=== PATIENT | female | born 1995 | race Caucasian/White ===

== ENCOUNTER 2018-09-29 14:48 | Emergency (ER) | payer MEDICAID, OTHER ==
[~2018-09-29] VITALS: Ht 167.6 cm; Wt 74.4 kg
[2018-09-29 15:40] LABS: CLARITY,URINE CLEAR; COLOR,URINE YELLOW; GLUCOSE, URINE (UA) NEGATIVE (NEGATIVE); PROTEIN,URINE NEGATIVE (NEGATIVE)
[2018-09-29 15:41] LABS: BILIRUBIN,URINE NEGATIVE (NEGATIVE); KETONES,URINE 2+ (NEGATIVE); LEUKOCYTE ESTERASE ,URINE NEGATIVE (NEGATIVE); NITRITE,URINE NEGATIVE (NEGATIVE); UROBILINOGEN,URINE 0.2 MG/DL (NORMAL)
--- NOTE | 2018-09-29 15:52 | ED Abdominal Pain ---
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 PATIENT STATES SHE HAS BEEN LIFTING A LOT AT WORK AND THIS PAIN STARTED OCCURING ABOUT 1 HOUR AGO. Sepsis Screen: No Definite Risk Source of Information: Patient, RN Notes Reviewed Exam Limitations: No Limitations History of Present Illness Date Seen by Provider: September 29, 2018 Past Skfvhqc-Bcknup-Ippsbr Hx Patient Social History Alcohol Use: Denies Use Recreational Drug Use: No Smoking Status: Never a Smoker 2nd Hand Smoke Exposure: No Recent Foreign Travel: No Contact w/Someone Who Travel: No Recent Infectious Disease Expo: No Recent Hopitalizations: No Physical Abuse: No Sexual Abuse: No Mistreated: No Fear: No Seasonal Allergies Seasonal Allergies: No Past Medical History Surgeries: Yes (RIGHT FOOT DEBEIDMENT) Gallbladder Respiratory: No Cardiac: No Neurological: No Genitourinary: No Gastrointestinal: No Musculoskeletal: No Endocrine: No HEENT: No Cancer: No Psychosocial: No Blood Disorders: No Physical Exam Vital Signs Vital Signs - First Documented 09/29/18 14:54 Temp 97.0 Pulse 102 Resp 20 B/P (MAP) 135/70 (91) Pulse Ox 100 O2 Delivery Room Air Capillary Refill : Less Than 3 Seconds Height/Weight/BMI Height: 5'6.00" Weight: 164lbs. oz. 74.784710bm; BMI Method:Stated Progress/Results/Core Measures Results/Orders Lab Results Laboratory Tests Test 09/29/18 15:31 Range/Units Urine Color YELLOW Urine Clarity CLEAR Urine pH 6.0 5-9 Urine Specific Marissa >1.030 1.016-1.022 Urine Protein NEGATIVE NEGATIVE Urine Glucose (UA) NEGATIVE NEGATIVE Urine Ketones 2+ H NEGATIVE Urine Nitrite NEGATIVE NEGATIVE Urine Bilirubin NEGATIVE NEGATIVE Urine Urobilinogen 0.2 NORMAL MG/DL Urine Leukocyte Esterase NEGATIVE NEGATIVE Urine RBC (Auto) NEGATIVE NEGATIVE Urine RBC NONE /HPF Urine WBC NONE /HPF Urine Squamous Epithelial Cells 2-5 /HPF Urine Crystals NONE /LPF Urine Bacteria NONE /HPF Urine Casts NONE /LPF Urine Mucus NEGATIVE /LPF Urine Culture Indicated NO My Orders Orders - PIO MONTES DO Ua Culture If Indicated (09/29/18 15:08) Vital Signs/I&O 09/29/18 14:54 Temp 97.0 Pulse 102 Resp 20 B/P (MAP) 135/70 (91) Pulse Ox 100 O2 Delivery Room Air Blood Pressure Mean: 91 Departure Impression Primary Impression: Abdominal wall strain Additional Impression: Disposition: HOME, SELF-CARE Condition: Stable Departure-Patient Inst. Decision time for Depature: 15:50 Referrals: MIGUELITO PERSON DO Patient Instructions: Muscle Strain (DC), - The Fourth Month Add. Discharge Instructions: All discharge instructions reviewed with patient and/or family. Voiced understanding. NEED TO DRINK A LOT MORE WATER AND EAT BETTER. Work/School Note: Work Release Form Date Seen in the Emergency Department: September 29, 2018 Return to Work: October 02, 2018 PIO MONTES DO September 29, 2018 15:52
[2018-09-29 16:02] VITALS: BP 130/65
--- OUTSIDE RECORDS SUMMARY | 2018-09-29 16:16 | XMS REPORT ---
Author LOTTIE Carpenter [facility] eClinicalWorks Address Unknown Phone Unavailable Care Team Providers Care Development Spec Name Role Phone LOTTIE DONAHUE CP Unavailable Allergies, Adverse Reactions, Alerts Substance Reaction Event Type sulfa drugs child pat Drug Allergy Morphine Sulfate vomiting Drug Allergy Cephalexin vomiting and rash Drug Allergy Amoxicillin rash Drug Allergy Problems Problem Type Condition Code Onset Dates Condition Status Assessment Left shoulder pain M25.512 Active Medications Medication Code System Code Instructions Start Date End Date Status Dosage Nabumetone [facility] [address]-20 500 MG Orally Twice a day Jun 10, 2015Jun 1 tablet NuvaRing [facility] [address]-20 0.12-0.015 MG/24HR Vaginal 1 ring Procedures Procedure Coding System Code Date Office Visit, Est Pt., Level 4 CPT-4 46296 Jun 10, 2015 Vital Signs Date/Time: Jun 10, 2015 Temperature 96.2 F Weight 151.9 lbs Height 66.5 in BMI 24.15 Index Blood Pressure Diastolic 60 mmHg Blood Pressure Systolic 110 mmHg Cardiac Monitoring Heart Rate 80 bpm Results No Known Results Summary Purpose eClinicalWorks Submission
--- OUTSIDE RECORDS SUMMARY | 2018-09-29 16:16 | XMS REPORT ---
Author Author MIGUELITO PERSON Organization [facility] Address [address] [place] [address] Care Team Providers Care Office Technician Name Role Phone MIGUELITO PERSON Unavailable PROBLEMS Type Condition ICD9-CM Code RFZ34-ND Code Onset Dates Condition Status SNOMED Code Problem Amenorrhea N91.2 Active 41013468 ALLERGIES Substance Reaction Event Type Date Status Morphine Sulfate vomiting Drug Allergy Jul, Active Cephalexin vomiting and rash Drug Allergy Jul, Active Amoxicillin rash Drug Allergy Jul, Active sulfa drugs child pat Drug Allergy Jul, Active ENCOUNTERS Encounter Location Date Diagnosis [address] [address] September, [address] [address] Aug, Encounter for supervision of other normal , first trimester Z34.[address] [address] Jul, Encounter for supervision of other normal in first trimester Z34.[address] [address] Jun, Amenorrhea N91.[address] [address] Jun, Amenorrhea N91.2 [facility] [address] [facility] [id number] [place] [address] May, Left shoulder pain M25.512 IMMUNIZATIONS No Known Immunizations SOCIAL HISTORY Never Assessed REASON FOR VISIT New OB Intake; LMP=19 no ins PLAN OF CARE VITAL SIGNS Height 66.5 in 2018-07-26 Weight 160 lbs 2018-07-26 Heart Rate 87 bpm 2018-07-26 Oximetry 98 % 2018-07-26 BMI 25.438 kg/m2 2018-07-26 Blood pressure systolic 112 mmHg 2018-07-26 Blood pressure diastolic 64 mmHg 2018-07-26 MEDICATIONS Medication Instructions Dosage Frequency Start Date End Date Duration Status NuvaRing 0.12-0.015 MG/24HR 1 ring Not-Taking 28-0.8 MG Orally Once a day 1 tablet 24h 30 day(s) Active RESULTS No Results PROCEDURES Procedure Date Ordered Result Body Site N.GONORRHOEAE, DNA, AMP PROB July 26, 2018 CHYLMD TRACH, DNA, AMP PROBE July 26, 2018 HEPATITIS B SURFACE AG, EIA July 26, 2018 RBC ANTIBODY SCREEN July 26, 2018 BLOOD SEROLOGY, QUALITATIVE July 26, 2018 BLOOD TYPING, ABO July 26, 2018 BLOOD TYPING, RH (D) July 26, 2018 COMPLETE CBC W/AUTO DIFF WBC July 26, 2018 HIV-1 AG W/HIV-1 & HIV-2 AB July 26, 2018 VENIPUNCT, ROUTINE* July 26, 2018 URINE CULTURE/COLONY COUNT July 26, 2018 SPECIMEN HANDLING July 26, 2018 RUBELLA ANTIBODY July 26, 2018 INSTRUCTIONS MEDICATIONS ADMINISTERED No Known Medications MEDICAL (GENERAL) HISTORY Type Description Date Surgical History debridment of right foot 2009 Surgical History cholecystectomy 2017 Hospitalization History Went to in december 2014
--- OUTSIDE RECORDS SUMMARY | 2018-09-29 16:16 | XMS REPORT | Continuity of Care Document ---
Author Organization Unknown Address Unknown Allergies There is no data. Medications There is no data. Problems There is no data. Procedures There is no data. Results There is no data. Encounters ACCT No. Visit Date/Time Discharge Status Pt. Type Provider Facility Loc./Unit Complaint [id number] 08/23/2018 14:00:00 08/23/2018 23:59:59 CLS Outpatient RAMBO PARHAM [facility]
== END 2018-09-29 16:02 | disposition home or self-care (01) ==
LOC: ER FS 14:51
DX: O9A.212 Injury, poisoning and certain other consequences of external causes complicating pregnancy, second trimester (principal); S39.011A Strain of muscle, fascia and tendon of abdomen, initial encounter; Z98.890 Other specified postprocedural states; Z3A.17 17 weeks gestation of pregnancy
CPT/HCPCS: 81000

== ENCOUNTER 2018-10-13 11:33 | Emergency (ER) | payer MEDICAID, OTHER ==
[~2018-10-13] VITALS: Ht 167.6 cm; Wt 76.2 kg
--- OUTSIDE RECORDS SUMMARY | 2018-10-13 11:38 | XMS REPORT | Continuity of Care Document ---
Author Organization Unknown Address Unknown Allergies There is no data. Medications There is no data. Problems There is no data. Procedures There is no data. Results There is no data. Encounters ACCT No. Visit Date/Time Discharge Status Pt. Type Provider Facility Loc./Unit Complaint [id number] 09/21/2018 15:30:00 09/21/2018 23:59:59 CLS Outpatient RAMBO PARHAM [facility]
--- NOTE | 2018-10-13 12:47 | ED General ---
General Chief Complaint: General Problems/Pain Stated Complaint: WC ABD PAIN Nursing Triage Note: Was lifting palets at work yesterday and started having lower abdominal pain. Is 17 wks 6 days . Saw her OB doctor yesterday afternoon who did an ultrasoud and put her on a weight restriction of 20 lbs. Her work had her come to ED today for workmans comp. Patient has had no pain since yesterday afternoon and has no complaints. Nursing Sepsis Screen: No Definite Risk Source of Information: Patient Exam Limitations: No Limitations History of Present Illness Date Seen by Provider: October 13, 2018 Time Seen by Provider: 12:15 Initial Comments Patient is a 23-year-old 17 week, 6 day gestation female who presents without medical complaint, but by request of her employer for work protocol evaluation of possible injury. 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 Patient was placed in a 20 pound work restriction. She has not had any abdominal pain since that time and reports movement. Today at work, the patient was instructed by her employer that she needed to be evaluated urgency department to comply with their work comp policy. Timing/Duration: 1 Day Modifying Factors: improves with Movement Associated Systoms: Denies Symptoms Allergies and Home Medications Patient Home Medication List Home Medication List Reviewed: Yes Review of Systems Review of Systems Constitutional: no symptoms reported EENTM: no symptoms reported Respiratory: no symptoms reported Cardiovascular: no symptoms reported Gastrointestinal: no symptoms reported Genitourinary: no symptoms reported Skin: no symptoms reported Psychiatric/Neurological: No Symptoms Reported Hematologic/Lymphatic: No Symptoms Reported Immunological/Allergic: no symptoms reported Past Kgfejvm-Pyrnih-Sdknjo Hx Past Med/Social Hx: Reviewed Nursing Past Med/Soc Hx Patient Social History Alcohol Use: Denies Use Recreational Drug Use: No Smoking Status: Never a Smoker 2nd Hand Smoke Exposure: No Recent Foreign Travel: No Contact w/Someone Who Travel: No Recent Infectious Disease Expo: No Recent Hopitalizations: No Physical Abuse: No Sexual Abuse: No Mistreated: No Fear: No Seasonal Allergies Seasonal Allergies: No Past Medical History Surgeries: Yes (RIGHT FOOT DEBEIDMENT) Gallbladder Respiratory: No Cardiac: No Neurological: No Genitourinary: No Gastrointestinal: No Musculoskeletal: No Endocrine: No HEENT: No Cancer: No Psychosocial: No Blood Disorders: No Physical Exam Vital Signs Vital Signs - First Documented 10/13/18 11:46 Temp 100.0 Pulse 97 Resp 16 B/P (MAP) 131/62 (85) Pulse Ox 100 Capillary Refill : Less Than 3 Seconds Height, Weight, BMI Height: 5'6.00" Weight: 168lbs. oz. 76.924646vh; BMI Method:Stated General Appearance: No Apparent Distress, Anxious Eyes: Bilateral Eye Normal Inspection, Bilateral Eye PERRL HEENT: PERRL/EOMI Neck: Full Range of Motion Respiratory: Lungs Clear Gastrointestinal: Other (gravid abdomen around the level of umbilicus,) Neurologic/Psychiatric: Alert, Oriented x3, No Motor/Sensory Deficits Focused Exam Sepsis Stage: Ruled Out Progress/Results/Core Measures Suspected Sepsis Recent Fever Within 48 Hours: No Infection Criteria Present: None New/Unexplained Altered Menta: No Sepsis Screen: No Definite Risk SIRS Temperature:100.0 Pulse: 97 Respiratory Rate: 16 Blood Pressure 131 /62 Mean: 85 Results/Orders My Orders Orders - MICHA VILLATORO DO Heart Tones (10/13/18 12:42) Vital Signs/I&O 10/13/18 11:46 Temp 100.0 Pulse 97 Resp 16 B/P (MAP) 131/62 (85) Pulse Ox 100 Capillary Refill : Less Than 3 Seconds Blood Pressure Mean: 85 Departure Communication (Admissions) Patient with unremarkable exam. Will obtain heart tones fill out workplace restrictions with instructions to follow up with work comp provider. Impression Primary Impression: Encounter for medical screening examination Disposition: HOME, SELF-CARE Condition: Improved Departure-Patient Inst. Add. Discharge Instructions: Please follow the instructions provided to by your NONPROFIT FINANCIAL CONTROLLER yesterday. Restrict all lifting to less than 20 pounds and take Tylenol 1000 mg every 6 hours as needed for abdominal wall pain. Follow-up with your work comp physician for further evaluation and recommendations. All discharge instructions reviewed with patient and/or family. Voiced understanding. MICHA VILLATORO DO October 13, 2018 12:47
[2018-10-13 12:59] VITALS: BP 120/71
== END 2018-10-13 12:58 | disposition home or self-care (01) ==
LOC: EDUNIT# 11:33 → ER FS 11:35
DX: O26.892 Other specified pregnancy related conditions, second trimester (principal); R10.2 Pelvic and perineal pain; Z3A.17 17 weeks gestation of pregnancy; X50.0XXA Overexertion from strenuous movement or load, initial encounter; Y92.59 Other trade areas as the place of occurrence of the external cause; Y99.0 Civilian activity done for income or pay

== ENCOUNTER 2019-03-10 10:56 | Outpatient (CLI) | payer MEDICAID ==
[~2019-03-10] VITALS: Ht 167.7 cm; Wt 83.5 kg
--- NOTE | 2019-03-10 11:03 | NUR ---
DAVID LIMON presented to unit via AMB from HOME, accompanied by SPOUSE, with c/o CONTRACTIONS. DAVID LIMON weighed, gowned, voided, and to bed. EFHM and TOCO applied, VS taken. DAVID LIMON oriented to bed controls, call light, TV, heat, and A/C controls.
[2019-03-10 11:20] VITALS: BP 124/84
[2019-03-10 11:30] VITALS: BP 124/84
[2019-03-10] MEDS ORDERED: PNV11TAB5 PO (11:40)
[2019-03-10] MEDS ORDERED: ACET-789 PO (11:42)
[2019-03-10 11:53] VITALS: BP 123/84
--- NOTE | 2019-03-10 12:07 | NUR ---
DR. PERSON NOTIFIED OF PT'S ARRIVAL, COMPLAINT, CERVICAL EXAM, CONTRACTION PATTERN, AND FHR TRACING. ORDER TO AMBULATE X1 HOUR AND RECHECK CERVIX.
[2019-03-10 12:22] VITALS: BP 124/85
--- NOTE | 2019-03-10 12:23 | NUR ---
UP TO AMBULATE WITH SPOUSE.
[2019-03-10 13:26] VITALS: BP 131/81
--- NOTE | 2019-03-10 13:26 | NUR ---
BACK TO BED. MONITORS ADJUSTED.
--- NOTE | 2019-03-10 13:28 | NUR ---
SVE BY BRAXTON DUMONT. NO CHANGE IN CERVIX.
--- NOTE | 2019-03-10 13:38 | NUR ---
DR. PERSON NOTIFIED OF NO CHANGE IN CERVIX AND CTX PATTERN. ORDER TO CONTINUE MONITORING FOR ANOTHER HOUR.
--- NOTE | 2019-03-10 14:49 | NUR ---
DR. PERSON NOTIFIED OF NO CHANGE IN CERVIX AND PT WANTING TO GO HOME RATING HER PAIN 4-7 DEPENDING ON CTX. CTX PATTERN Q3-6 MIN. MILD TO MOD TO PALPATION. ORDER TO DISMISS WITH PRECAUTIONS. PT SCHEDULED FOR INDUCTION OF LABOR ON Tuesday03-12-2019.
--- NOTE | 2019-03-10 15:00 | NUR ---
DISCHARGE INSTRUCTIONS REVIEWED WITH COPY TO PT. STATES UNDERSTANDING OF ALL INSTRUCTIONS AND NEED TO F/U SCHEDULED AND NEEDED.
[2019-03-10 15:05] VITALS: BP 131/81
--- NOTE | 2019-03-10 15:05 | NUR ---
DISMISSED AMB FROM WS IN STABLE CONDITION ACC BY SPOUSE.
[2019-03-12] MEDS ORDERED: OXC5T PO (07:56)
[2019-03-12] MEDS ORDERED: ACET-77 PO (07:56)
[2019-03-12] MEDS ORDERED: IBUP-1780 PO (07:56)
[2019-03-12] MEDS ORDERED: DOCU100C37 PO (07:56)
--- NOTE | 2019-03-12 08:37 | Physician Query-Final Dx ---
GREGORIO JENNINGS 03/12/19 0837: Clinic Account Progress/Dx Physician Query: Please give diagnosis Please include # weeks gestation Date of Service Mar 10, 2019 at 10:56 MIGUELITO PERSON DO 03/20/19 0620: Clinic Account Progress/Dx Physician Query: Please give diagnosis (Intrauterine at 38 5/7 weeks 2. Leaking Fluid 3. Pelvic Pain) DIAGNOSIS: Diagnosis Intrauterine at 38 5/7 weeks 2. Leaking Fluid 3. Pelvic Pain GREGORIO JENNINGS Mar 12, 2019 08:37 MIGUELITO BARKLEY DO Mar 20, 2019 06:20 POS
== END 2019-03-10 15:05 | disposition home or self-care (01) ==
LOC: WSo 10:56 → LDRP 10:56 → WSo 15:05
PROVIDERS: ATTEND Obstetrics & Gynecology
DX: O42.92 Full-term premature rupture of membranes, unspecified as to length of time between rupture and onset of labor (principal); Z3A.38 38 weeks gestation of pregnancy
CPT/HCPCS: 99214

== ENCOUNTER 2019-03-11 02:05 | Inpatient (IN) | payer MEDICAID ==
[2019-03-10 02:20] VITALS: BP 144/84
[~2019-03-11] VITALS: Ht 167.7 cm; Wt 84.2 kg
[2019-03-11] VITALS (48 sets, daily range): BP systolic 108–151; BP diastolic 57–84
[~2019-03-11 02:05] MED LIST: ACET-789 PO; PNV11TAB5 PO
--- NOTE | 2019-03-11 02:12 | NUR ---
DAVID LIMON presented to unit via wheelchair from ED, accompanied by S.O. , with c/o CONTRACTIONS. DAVID LIMON weighed, gowned, voided, and to bed. EFHM and TOCO applied, VS taken. DAVID LIMON oriented to bed controls, call light, TV, heat, and A/C controls.
[2019-03-11] MEDS ORDERED: MINERAL OIL CONCENTRATE 99.9% 15 ML UDC TOP PRN (02:30)
[2019-03-11 02:53] LABS: BASOPHILS % (AUTO) 0 % (0-10); EOSINOPHILS # (AUTO) 0.1 10^3/uL (0.0-0.3); EOSINOPHILS % (AUTO) 1 % (0-10); HEMATOCRIT 34 % (35-52); HEMOGLOBIN 11.1 G/DL (11.5-16.0); LYMPHOCYTES # (AUTO) 1.8 X 10^3 (1.0-4.0); LYMPHOCYTES % (AUTO) 13 % (12-44); MEAN CORPUSCULAR HEMOGLOBIN 28 PG (25-34); MEAN CORPUSCULAR HGB CONC 32 G/DL (32-36); MEAN CORPUSCULAR VOLUME 87 FL (80-99); MEAN PLATELET VOLUME 12.4 FL (7.4-10.4); MONOCYTES % (AUTO) 7 % (0-12); NEUTROPHILS # (AUTO) 11.5 X 10^3 (1.8-7.8); NEUTROPHILS % (AUTO) 80 % (42-75); PLATELET COUNT 212 10^3/uL (130-400); RED CELL DISTRIBUTION WIDTH 13.2 % (10.0-14.5); WHITE BLOOD COUNT 14.4 10^3/uL (4.3-11.0)
[2019-03-11] MEDS ORDERED: OXYTOCIN PRE-MIX DRIP 500 ML IV ONE (02:58)
[2019-03-11] MEDS ORDERED: SUFENTA 0.6MCG/ML BUPIVA 0.125 100 ML ONE (02:58)
[2019-03-11] MEDS ORDERED: LIDOCAINE 1% INJ 20 ML 20 ML VIAL ONE (03:09)
[2019-03-11] MEDS: D5 LR IV SOLUTION 1,000 ML IV SCH ×2 (03:20→09:35)
[2019-03-11] MEDS ORDERED: LACTATED RINGERS 1,000 ML IV SCH (03:37)
[2019-03-11] MEDS ORDERED: NALOXONE 0.4 MG/ML 1 ML (NARCAN) VIAL IV PRN ×2 (03:45)
[2019-03-11] MEDS ORDERED: diphenhydrAMINE 50 MG/ML INJ (BENADRYL) IV PRN (03:45)
[2019-03-11] MEDS ORDERED: EPIDURAL (SUFENTA 0.6MCG/ML BUPIVA 0.125%) 100 ML BAG EPI SCH (03:45)
[2019-03-11] MEDS ORDERED: ONDANSETRON 4 MG/2 ML (SDV) Z0FRAN IV PRN (03:45)
[2019-03-11] MEDS ORDERED: METOCLOPRAMIDE INJ 10 MG/2 ML (REGLAN) IV PRN (03:45)
--- NOTE | 2019-03-11 07:05 | NUR ---
REPORT RECEIVED BY JULIA BARRON AT THIS TIME. PT 7CM WITH BULGING BAG, LAST SVE AT 0500.
--- NOTE | 2019-03-11 08:00 | NUR ---
THIS RN GIVES DR PERSON AN UPDATED PT REPORT. LAST SVE 0500: 7 CM WITH BULGING BAG. UC Q 3-4 MIN WITH AN EPIDURAL. DR PERSON STATES HE WILL SEE PT THIS MORNING. NO NEW ORDERS RECEIVED.
--- NOTE | 2019-03-11 09:00 | History & Physical-OB ---
OB - Chief Complaint & HPI Date/Time Date of Admission: Date of Admission: Mar 11, 2019 at 02:41 Date seen by a Provider: Mar 11, 2019 Time Seen by a Provider: 08:45 Chief Complaint/History OB-Reason for Admission/Chief: Onset of Labor Hx : 2 Hx Para: 1 Expected Date of Delivery: Mar 17, 2019 Gestational Age in Weeks: 39 Gestational Age in Days: 0 Admission Nurse Assessment Rev: Yes Allergies and Home Medications Allergies Coded Allergies: Sulfa (Sulfonamide Antibiotics) (Verified Allergy, Unknown, Rash, 03/10/19) amoxicillin (Verified Allergy, Unknown, Rash, 03/10/19) latex (Verified Allergy, Unknown, Rash, 03/10/19) morphine (Verified Allergy, Unknown, Vomiting, 03/10/19) Home Medications Acetaminophen with Codeine 1 Each Tablet, 1 EACH PO Q4H, (Reported) Ksn866/FA/Omega3/Dha/Fish Oil 1 Each Tab.chew, 2 EACH PO DAILY, (Reported) Patient Home Medication List Home Medication List Reviewed: Yes OB - History Hx of Present Care: Yes Ultrasounds: Normal mid trimester US Medical Complications: None Information Induced Hypertension: No Maternal Gestational Diabetes: No Hemorrhage: No Obstetrical History Hx : 2 Hx Para: 1 Hx # Term Pregnancies: 1 Hx # Pregnancies: 0 Number of Living Children: 1 Hx Termination: No Delivery History Hx Dystocia: No Hx Forceps Assisted Delivery: No Hx Vacuum Extraction Assisted: No Hx Placenta Abnormality: No Hx Distress: No Hx Large For Gestational Age I: No Hx Small for Gestational Age I: No Hx Section: No Hx Vaginal Delivery Post C-Sec: No Hx Blood Disorders: No Adverse Rxn to Tranfusion: No Patient Past Medical History Noncontributory Social History/Family History HIV/AIDS: No Alcohol Use: Denies Use Recreational Drug Use: No 2nd Hand Smoke Exposure: No OB - Admission Exam Physical Exam Vitals: Vital Signs 03/11/19 03/11/19 03/11/19 04:40 06:50 07:20 Temp 36.2 Pulse 106 Resp 18 B/P (MAP) 116/68 (84) Pulse Ox 98 O2 Delivery Room Air HEENT: NCAT Heart: Rhythm Normal Lungs: Clear Abdomen: Gravid Extremities: Normal Reflexes: Normal Cervical Dilatation: 8cm Effacement: 75% Station: -2 Membranes: Intact Heart Rate: 140's Accelerations: Accelerations Present Decelerations: No Decelerations Short Term Variability: Present Correction Variability: Average (6-25) Contractions on Admission: < 5 Minutes Apart Intensity: Moderate Soares Scoring Tool (Modified) Dilation (cm): >5cm (3) Effacement (%): 51-79% (2) Descent/Station: -2 (1) Cervix Consistency: Soft (2) Cervix Position: Anterior (2) Add 1 point for: Each previous vaginal delivery (1) Labs Laboratory Tests Test 03/11/19 02:30 Range/Units White Blood Count 14.4 H 4.3-11.0 10^3/uL Red Blood Count 3.96 L 4.35-5.85 10^6/uL Hemoglobin 11.1 L 11.5-16.0 G/DL Hematocrit 34 L 35-52 % Mean Corpuscular Volume 87 80-99 FL Mean Corpuscular Hemoglobin 28 25-34 PG Mean Corpuscular Hemoglobin Concent 32 32-36 G/DL Red Cell Distribution Width 13.2 10.0-14.5 % Platelet Count 212 130-400 10^3/uL Mean Platelet Volume 12.4 H 7.4-10.4 FL Neutrophils (%) (Auto) 80 H 42-75 % Lymphocytes (%) (Auto) 13 12-44 % Monocytes (%) (Auto) 7 0-12 % Eosinophils (%) (Auto) 1 0-10 % Basophils (%) (Auto) 0 0-10 % Neutrophils # (Auto) 11.5 H 1.8-7.8 X 10^3 Lymphocytes # (Auto) 1.8 1.0-4.0 X 10^3 Monocytes # (Auto) 1.0 0.0-1.0 X 10^3 Eosinophils # (Auto) 0.1 0.0-0.3 10^3/uL Basophils # (Auto) 0.0 0.0-0.1 10^3/uL OB - Assessment/Plan/Diagnosis Assessment Assessment: active labor Admission Dx Intrauterine at 39 weeks--onset of labor Admission Status: Inpatient Order (span 2 midnights) Reason for Inpatient Admission: Intrauterine at 39 weeks--onset of labor Plan Plan: Expectant Management Induction Method: AROM (Expectant management. I artificially rupture her membranes. Ms. gorman received an Epidural for antepartum pain management ) MIGUELITO PERSON DO Mar 11, 2019 09:00
[2019-03-11] MEDS ORDERED: OXYTOCIN PRE-MIX DRIP 500 ML IV SCH ×2 (09:24→10:52)
--- NOTE | 2019-03-11 10:59 | OB Labor & Delivery Record ---
Vag Delivery Note Vag Delivery Note Date of Delivery: 03/11/19 Preoperative Diagnosis: Ellie Waller is a (23 /Para 2 / 1,Gestational Age (wks)39with [] Postoperative Diagnosis: Same Surgeon: MIGUELITO PERSON Jar Filler: [None] Anesthesia: [Epidural] Delivery Type: [Normal Spontaneous Vaginal Delivery with Midline Episiotomy and Standard Repair] Findings: [] Viable [Male] , apgars [], weight [] Lacerations: Midline Episiotomy Intact placenta with 3 vessel cord. No nuchal cord, body cord Estimated Blood Loss: [300] ml Complications: Shoulder dystocia, corrected with midline episiotomy and rotating anterior shoulder anteriorly Condition: Stable Description of Procedure: The patient is a 23 year old female who presented [with the onset of labor]. She was admitted and informed consent was obtained. Her labor course was unremarkable. She progressed to complete dilatation and began to push. She was then set up for delivery. The 's head was delivered atraumatically in the [ROYER] position. The right shoulder was rotated anteriorly and remainder of the infant's body were then delivered without difficulty. Upon delivery, the head was held below the level of the perineum and the mouth and nares were bulb suctioned. The cord was doubly clamped and cut and the infant was handed off to the pediatric staff where NRP protocol was followed. An intact placenta with 3- vessel cord delivered via Larissa and there was found to be minimal bleeding.~ Vigorous fundal massage was performed and the fundus was found to be firm. IV oxytocin was given. Examination of the vagina and perineum revealed only the midline epsiotomy with extension laceration repaired in the usual fashion with 3-0 vicryl suture. Following the repair, sponge, instrument and needle counts were correct. Mom and baby were both in stable condition in the labor suite. Vitals - Labs Vital Signs - I&O Vital Signs Date Time Temp Pulse Resp B/P (MAP) Pulse Ox O2 Delivery O2 Flow Rate FiO2 03/11/19 09:30 103 110/70 (83) Room Air 03/11/19 09:15 36.8 107 112/72 (85) Room Air 03/11/19 09:00 109 18 110/73 (85) 03/11/19 08:45 83 109/71 (84) 03/11/19 08:30 91 110/69 (83) 03/11/19 08:15 97 110/74 (86) 03/11/19 08:00 100 112/69 (83) 03/11/19 07:45 98 116/74 (88) 03/11/19 07:30 36.6 96 18 117/73 (88) 99 03/11/19 07:20 106 18 116/68 (84) 98 03/11/19 07:05 97 18 118/81 (93) 98 03/11/19 06:50 36.2 100 18 117/78 (91) 100 03/11/19 06:35 100 18 108/70 (83) 100 03/11/19 06:20 83 18 116/73 (87) 99 03/11/19 06:05 96 18 108/68 (81) 99 03/11/19 05:50 95 18 114/70 (85) 99 03/11/19 05:35 93 18 119/73 (88) 99 03/11/19 05:20 91 18 119/71 (87) 99 03/11/19 05:05 101 18 114/69 (84) 98 03/11/19 04:50 105 18 115/72 (86) 98 03/11/19 04:40 36.7 91 18 99 Room Air 03/11/19 04:35 105 18 118/66 (83) 98 03/11/19 04:20 104 18 112/59 (76) 98 03/11/19 04:15 105 18 118/62 (80) 98 03/11/19 04:10 107 18 117/59 (78) 98 03/11/19 04:05 112 18 115/65 (82) 98 03/11/19 04:00 98 18 109/57 (74) 98 03/11/19 03:55 106 18 118/70 (86) 98 03/11/19 03:50 105 18 122/64 (83) 98 03/11/19 03:45 99 18 121/68 (85) 99 03/11/19 03:40 105 18 126/70 (88) 99 03/11/19 03:35 102 18 131/77 (95) 99 03/11/19 03:32 107 18 139/78 (98) 99 03/11/19 03:30 105 18 132/71 (91) 99 03/11/19 03:25 111 18 137/73 (94) 99 03/11/19 03:20 104 18 139/74 (95) 98 03/11/19 03:00 95 18 151/79 (103) 100 03/11/19 02:20 36.7 91 18 144/84 (104) I & O 03/11/19 07:00 Intake Total 1000 ml Balance 1000 ml Labs Laboratory Tests 03/11/19 02:30: White Blood Count 14.4H, Red Blood Count 3.96L, Hemoglobin 11.1L, Hematocrit 34L , Mean Corpuscular Volume 87, Mean Corpuscular Hemoglobin 28, Mean Corpuscular Hemoglobin Concent 32, Red Cell Distribution Width 13.2, Platelet Count 212, Mean Platelet Volume 12.4H, Neutrophils (%) (Auto) 80H, Lymphocytes (%) (Auto) 13, Monocytes (%) (Auto) 7, Eosinophils (%) (Auto) 1, Basophils (%) (Auto) 0, Neutrophils # (Auto) 11.5H, Lymphocytes # (Auto) 1.8, Monocytes # (Auto) 1.0, Eosinophils # (Auto) 0.1, Basophils # (Auto) 0.0 MIGUELITO PERSON DO Mar 11, 2019 10:59
[2019-03-11] MEDS ORDERED: BENZOCAINE/MENTHOL (DERMOPLAST) 60 ML CAN TP PRN (11:00)
[2019-03-11] MEDS ORDERED: WITCH HAZEL(TUCKS) 40 EA JAR TOP PRN (11:00)
[2019-03-11] MEDS ORDERED: TETANUS,DIPTH,PERTUSS P/F (BOOSTRIX) 0.5 ML VIAL IM ONE (11:00)
[2019-03-11] MEDS ORDERED: MEASLES,MUMPS,RUBELLA 1 EA INJ SQ ONE (11:00)
[2019-03-11] MEDS ORDERED: DIBUCAINE (NUPERCAINAL) 1% OINT 30 GM TOP PRN (11:00)
[2019-03-11] MEDS: IBUPROFEN 800 MG (MOTRIN) TAB PO SCH ×2 (11:14→18:36)
--- NOTE | 2019-03-11 12:26 | NUR ---
1004: NUNN CATHETER DC: 350 ML URINE OUT 1005: ROOM SET UP FOR DELIVERY 1008: START PUSHING. THIS RN, BRUNA RN, DR PERSON, AND PT SO AT BEDSIDE. 1033: DELIVERY OF HEAD 1034: [address] PERSON BY THIS RN, TC BY THIS RN AND BRUNA DUMONT 1035: RML BY DR PERSON. DELIVERY OF VIABLE MALE 39.[address] PERSON. 1035: CORD CLAMPED 1036: CORD CUT BY DR PERSON. TAKEN BY BRUNA DUMONT TO WARMER FOR EVALUATION. 1 MIN : 6 1039:SPONTANEOUS DELIVERY OF INTACT PLACENTA 1050: RECOVERY PERIOD BEGAN, PERICARE, LINEN CHANGE, VSS. FUNDAS 1 BELOW UMBILICUS, MIDLINE, FIRM, LIGHT BLEEDING. PT DENIES PAIN. CALL LIGHT WITHIN REACH. 1105: VSS. FUNDAS 1 BELOW UMBILICUS, MIDLINE, FIRM, LIGHT BLEEDING. PT DENIES PAIN. CALL LIGHT WITHIN REACH. 1120: VSS. FUNDAS 2 BELOW UMBILICUS, MIDLINE, FIRM, LIGHT BLEEDING. PAD CHANGED, PERICARE. PT DENIES PAIN. CALL LIGHT WITHIN REACH. 1135: FUNDAS 1 BELOW UMBILICUS, MIDLINE, FIRM, LIGHT BLEEDING. PT DENIES PAIN. CALL LIGHT WITHIN REACH. 1150: FUNDAS 1 BELOW UMBILICUS, MIDLINE, FIRM, LIGHT BLEEDING. PT DENIES PAIN. CALL LIGHT WITHIN REACH. PT .
--- NOTE | 2019-03-11 13:00 | NUR ---
Patient holding infant at this time. Family in room visiting. Patient reports right leg still fairly heavy. Will continue to monitor.
--- NOTE | 2019-03-11 13:50 | NUR ---
Epidural catheter DC'd, tip intact. Fundus firm U/1 with small rubra lochia noted. No clots. Pericare completed and clean pad/panties applied. Family to room with food. Will transfer patient to after she eats.
[2019-03-11] MEDS ORDERED: CATHETER FLUSH 10 ML SYR IV SCH (14:00)
--- NOTE | 2019-03-11 14:30 | NUR ---
Patient transferred via wheelchair to room 310. Patient up to restroom. + void noted. Pericare reviewed. Clean pad applied. Patient ambulated back to bed without difficulty. Patient oriented to room and menu. Patient verbalizes understanding and questions answered. Scheduled Tylenol PO given at this time.
[2019-03-11] MEDS: ACETAMINOPHEN 500 MG TAB (TYLENOL) PO SCH ×2 (14:46→21:15)
--- NOTE | 2019-03-11 18:36 | NUR ---
Scheduled Motrin PO given. Fresh water and cleaning supplies for breast pump provided.
--- NOTE | 2019-03-11 19:15 | NUR ---
REPORT RECEIVED AND CARES RESUMED BY THIS NURSE.
--- NOTE | 2019-03-11 19:35 | NUR ---
PT SITTING UP IN BED WITH ON CHEST. DENIES ANY NEEDS AT THIS TIME. REPORTS PAIN CONTROLLED.
[2019-03-11] MEDS ORDERED: DOCUSATE SODIUM 100 MG (COLACE) CAP PO SCH (21:00)
--- NOTE | 2019-03-11 21:10 | NUR ---
SCHEDULED TYLENOL ADMINISTERED. PT DENIES ANY FURTHER NEEDS.
--- NOTE | 2019-03-11 22:45 | NUR ---
PT HAS SHOWERED. DRESSING TO IV LOOSE AND IV COMING OUT. D/C'D AT THIS TIME.
--- NOTE | 2019-03-12 02:00 | NUR ---
PT REQUESTS MOTRIN AND TYLENOL BE DELAYED UNTIL 0500 SO THAT SHE MAY REST. PT DENIES ANY NEEDS.
[2019-03-12] MEDS: ACETAMINOPHEN 500 MG TAB (TYLENOL) PO SCH ×2 (03:15→09:44)
--- NOTE | 2019-03-12 05:05 | NUR ---
PT SITTING UP IN BED . DENIES ANY NEEDS OR C/O'S. VSS. MOTRIN ADMINISTERED. WILL CALL WHEN FINISHED FOR INFANT BS AND WEIGHT.
[2019-03-12 05:10] VITALS: BP 128/87
[2019-03-12] MEDS: IBUPROFEN 800 MG (MOTRIN) TAB PO SCH (05:41)
[2019-03-12 07:00] LABS: BASOPHILS % (AUTO) 0 % (0-10); EOSINOPHILS # (AUTO) 0.3 10^3/uL (0.0-0.3); EOSINOPHILS % (AUTO) 3 % (0-10); HEMATOCRIT 30 % (35-52); HEMOGLOBIN 9.5 G/DL (11.5-16.0); LYMPHOCYTES # (AUTO) 1.7 X 10^3 (1.0-4.0); LYMPHOCYTES % (AUTO) 19 % (12-44); MEAN CORPUSCULAR HEMOGLOBIN 28 PG (25-34); MEAN CORPUSCULAR HGB CONC 32 G/DL (32-36); MEAN CORPUSCULAR VOLUME 89 FL (80-99); MEAN PLATELET VOLUME 12.5 FL (7.4-10.4); MONOCYTES # (AUTO) 0.6 X 10^3 (0.0-1.0); MONOCYTES % (AUTO) 7 % (0-12); NEUTROPHILS # (AUTO) 6.1 X 10^3 (1.8-7.8); NEUTROPHILS % (AUTO) 71 % (42-75); PLATELET COUNT 144 10^3/uL (130-400); RED CELL DISTRIBUTION WIDTH 13.2 % (10.0-14.5); WHITE BLOOD COUNT 8.6 10^3/uL (4.3-11.0)
[2019-03-12] MEDS ORDERED: PRENATAL VITAMIN 1 EA TAB PO SCH (07:00)
[2019-03-12] MEDS ORDERED: DOCU100C37 PO (07:56)
[2019-03-12] MEDS ORDERED: OXC5T PO (07:56)
[2019-03-12] MEDS ORDERED: ACET-78 PO (07:56)
[2019-03-12] MEDS ORDERED: IBUP-1780 PO (07:56)
--- NOTE | 2019-03-12 07:59 | Discharge Inst-Women's Service ---
Discharge Inst-Women's Serv Depart Medication/Instructions New, Converted or Re-Newed RX: RX Given to Pt/Family Final Diagnosis Intrauterine at 39 weeks--delivered Consults/Follow Up Additional Follow Up: Yes Activity Activity: Activity as Tolerated Driving Instructions: No Driving for 1 Week NO SMOKING: NO SMOKING Nothing Inside Vagina: No Douching, No [place], No Tampons Diet Discharge Diet: No Restrictions Symptoms to Report to : Bleeding Excessive, Pain Increased, Fever Over 101 Degrees F, Vaginal Bleeding Increase, Lightheadedness, Vaginal Discharge Foul, Nausea/Vomiting, Shortness of Breath For Any Problems or Questions: Contact Your Physician Skin/Wound Care Infection Signs and Symptoms: Increased Redness, Foul Odor of Wound, Increased Drainage, Temperature Above 101 F Operative Area Clean and Dry: Keep Incision Clean/Dry Stitches/[place]/Dermabond: Care of Stitches Bathing Instructions: MIGUELITO Henley DO Mar 12, 2019 07:59
--- NOTE | 2019-03-12 08:04 | Discharge Summary ---
Diagnosis/Chief Complaint Date of Admission Mar 11, 2019 at 02:41 Date of Discharge March 12, 2019 Discharge Date: Mar 12, 2019 Discharge Time: 11:00 Admission Diagnosis Admission Diagnosis Intrauterine at 39 weeks Discharge Diagnosis Intrauterine at 39 weeks--delivered Reason Hospital Visit Onset of labor Discharge Summary Hospital Course Was the Problem List Reviewed?: Yes Hospital Course Ms. Waller presented to the hospital for onset of regular contractions. Upon admission she was noted to be 6 cm dilated. She was allowed to labor. She received an epidural for antepartum pain management. I artificially rupture her membranes. She progressed to complete, then after a short course of pushing delivered a healthy viable male without complications. Her vital signs remained stable throughout her hospitalization. The remainder of her hospitalization was unremarkable. I will discharge her to home with instructions, prescriptions, and a follow up appointment. Labs Laboratory Tests 03/11/19 02:30: White Blood Count 14.4H, Red Blood Count 3.96L, Hemoglobin 11.1L, Hematocrit 34L , Mean Platelet Volume 12.4H, Neutrophils (%) (Auto) 80H, Neutrophils # (Auto) 11.5H 03/12/19 06:45: Red Blood Count 3.37L, Hemoglobin 9.5L, Hematocrit 30L, Mean Platelet Volume 12.5H Procedures None. Discharge Physical Examination Allergies: Coded Allergies: Sulfa (Sulfonamide Antibiotics) (Verified Allergy, Unknown, Rash, 03/10/19) amoxicillin (Verified Allergy, Unknown, Rash, 03/10/19) latex (Verified Allergy, Unknown, Rash, 03/10/19) morphine (Verified Allergy, Unknown, Vomiting, 03/10/19) Vitals & I&Os Vital Signs Date Time Temp Pulse Resp B/P (MAP) Pulse Ox O2 Delivery O2 Flow Rate FiO2 03/12/19 05:41 36.7 03/12/19 05:10 80 16 128/87 (101) 98 Room Air General Appearance: Alert, Oriented X3, Cooperative HEENT: Atraumatic Respiratory: Clear to Auscultation, Normal Air Movement Cardiovascular: Regular Rate, No Murmurs Abdominal: Normal Bowel Sounds Extremities: No Clubbing, No Cyanosis Skin: No Rashes Neuro: Normal Gait, Normal Speech Psych/Mental Status: Mental Status NL Discharge Home Medications Reviewed and agree with Discharge Medication list on patient's Discharge Instruction sheet Instructions to Patient/Family Please see electronic discharge instructions given to patient. Clinical Quality Measures DVT/VTE Risk/Contraindication: Risk Factor Score Per Nursin RFS Level Per Nursing on Admit: 1=Low/No VTE PPMIGUELITO ERIC DO Mar 12, 2019 08:04
[2019-03-12 09:00] VITALS: BP 125/75
--- NOTE | 2019-03-12 12:00 | NUR ---
resting in room no c/o with s/o at side.
--- NOTE | 2019-03-12 14:43 | Anesthesia-Regional Post-Op ---
Regional Patient Condition Mental Status: Alert, Oriented x3 Circulation: Same as Pre-Op Headache: Absent Sensation: Full Recovery Motor Block: Absent Post Op Complications Complications None Follow Up Care/Instructions Patient Instructions None needed. Anesthesia/Patient Condition Patient is doing well, complaining of some back "soreness" which is to be expected, stable vital signs, no apparent adverse anesthesia problems. I explained to her that "stiffness and soreness" is not uncommon after an epidural and it is nothing to worry about. I examined the site which showed no redness or bruising. I told her to call with any concerns or questions or if the symptoms worsens. TWIN BREWER DO Mar 12, 2019 14:43
--- OUTSIDE RECORDS SUMMARY | 2019-04-02 20:35 | XMS REPORT | Continuity of Care Document ---
Author Organization Unknown POS Address Unknown SP Phone Unavailable SP Allergies Active Description Code Type Severity POS Reaction Onset Reported/Identified POS to Patient Clinical Status POS Yes amoxicillin [id number] Drug Aller gy SP Rash 03/10/2019 SP Yes latex [id number] Drug Allergy SP Rash 03/10/2019 SP Yes morphine [id number] Drug Allergy SP Vomiting 03/10/2019 SP Yes Sulfa (Sulfonamide Antibiotics) [id number] SP Allergy Unknown Rash 9 SP SP Medications There is no data. Problems Date Dx Coded Attending Type Code POS Diagnosed By POS 09/29/2018 PIO MONTES DO, Ot O9A.212 SP INJ/POISN/OTH CONSEQ OF EXTRN CAUSES COM SP 09/29/2018 PIO MONTES DO Ot R10.2 SP PELVIC AND PERINEAL PAIN SP 09/29/2018 PIO MONTES DO, Ot S39.011A SP STRAIN OF MUSCLE, FASCIA AND TENDON OF A SP 09/29/2018 PIO MONTES DO, Ot Z3A.17 SP 17 WEEKS GESTATION OF SP 09/29/2018 PIO MONTES DO Ot Z98.890 SP OTHER SPECIFIED POSTPROCEDURAL STATES SP 10/04/2018 PIO MONTES DO, Ot O9A.212 SP INJ/POISN/OTH CONSEQ OF EXTRN CAUSES COM SP 10/04/2018 PIO MONTES DO Ot R10.2 SP PELVIC AND PERINEAL PAIN SP 10/04/2018 PIO MONTES DO, Ot S39.011A SP STRAIN OF MUSCLE, FASCIA AND TENDON OF A SP 10/04/2018 PIO MONTES DO, Ot Z3A.17 SP 17 WEEKS GESTATION OF SP 10/04/2018 PIO MONTES DO Ot Z98.890 SP OTHER SPECIFIED POSTPROCEDURAL STATES SP 10/06/2018 PIO MONTES DO, Ot O9A.212 SP INJ/POISN/OTH CONSEQ OF EXTRN CAUSES COM SP 10/06/2018 PIO MONTES DO Ot R10.2 SP PELVIC AND PERINEAL PAIN SP 10/06/2018 PIO MONTES DO Ot S39.011A SP STRAIN OF MUSCLE, FASCIA AND TENDON OF A SP 10/06/2018 PIO MONTES DO Ot Z3A.17 SP 17 WEEKS GESTATION OF SP 10/06/2018 PIO MONTES DO Ot Z98.890 SP OTHER SPECIFIED POSTPROCEDURAL STATES SP 10/13/2018 [place] DO, MICHA Ot O26.892 OTH SP RELATED CONDITIONS, SECOND SP 10/13/2018 [place] DO, MICHA Ot R10.2 PELVIC SPAND PERINEAL PAIN SP 10/13/2018 [facility], MICHA Ot X50.0XXA SP FROM STRENUOUS MOVEMENT OR SP 10/13/2018 [facility], MICAH Ot Y92.[address] SP 10/13/2018 [facility], MICHA Ot Y99.0 SP ACTIVITY DONE FOR INCOME OR PAY SP 10/13/2018 [facility], MICHA Ot Z3A.17 17 SP GESTATION OF SP 10/18/2018 [place] DO, MICHA Ot O26.892 OTH SP RELATED CONDITIONS, SECOND SP 10/18/2018 [facility], MICHA Ot R10.2 PELVIC SPAND PERINEAL PAIN SP 10/18/2018 [facility], MICHA Ot X50.0XXA SP FROM STRENUOUS MOVEMENT OR SP 10/18/2018 [facility], MICHA Ot Y92.[address] SP 10/18/2018 [place] DO, MICHA Ot Y99.0 SP ACTIVITY DONE FOR INCOME OR PAY SP 10/18/2018 [place] DO, MICHA Ot Z3A.17 17 SP GESTATION OF SP 03/12/2019 MIGUELITO PERSON DO Ot O66.0 SP LABOR DUE TO SHOULDER DYSTOCI SP 03/12/2019 RAZA SIMPSON MIGUELITO E Ot Z37.0 SP LIVE SP 03/12/2019 MIGUELITO PERSON DO Ot Z3A.3 9 SP WEEKS GESTATION OF SP 03/12/2019 MIGUELITO PERSON DO Ot Z88.1 SP STATUS TO OTHER ANTIBIOTIC AGENT SP 03/12/2019 RAZA SIMPSON MIGUELITO Abe Ot Z88.2 SP STATUS TO SULFONAMIDES STATUS SP 03/12/2019 MIGUELITO PERSON DO Ot Z88.5 SP STATUS TO NARCOTIC AGENT STATUS SP 03/28/2019 MIGUELITO PERSON DO Ot O42.9 2 SPTERM MARY ROM, UNSP TIME BETW RUPTU SP 03/28/2019 MIGUELITO PERSON DO Ot Z3A.3 8 SP WEEKS GESTATION OF SP Procedures Code Description Performed By Per formed On POS [id number] DI VISION OF FEMALE PERINEUM, SPEXTERNAL AP 03/11/2019 SP [id number] DE LIVERY OF PRODUCTS OF SP EXTE 03/11/2019 SP Results Test Result Range POS SUREPATH PAP RFX HPV mRNA E6/E7 - 00:00 POS CLINICAL INFORMATION: NRG SP LMP: PREG NRG SP PREV. PAP: NRG SP PREV. 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 COMMENT NRG SP HIV ANTIGEN/ANTIBODY - 07/26/18 16:02 POS HIV AG/AB, 4TH GEN NON-REACTIVE NON-JAYE CTIVE SP CBC - 07/26/18 16:02 POS WHITE BLOOD CELL COUNT 9.7 Thousand/uL 3 .8-10.8 SP RED BLOOD CELL COUNT 4.48 Million/uL 3.8 0-5.10 SP HEMOGLOBIN 13.8 g/dL 11.7-15.5 SP HEMATOCRIT 40.3 % 35.0-45.0 SP MCV 90.0 fL 80.0-100.0 SP MCH 30.8 pg 27.0-33.0 SP MCHC 34.2 g/dL 32.0-36.0 SP RDW 11.1 % 11.0-15.0 SP PLATELET COUNT 298 Thousand/uL 140-400 SP MPV 10.8 fL 7.5-12.5 SP ABSOLUTE NEUTROPHILS 6266 cells/uL 1500- 7800 SP ABSOLUTE LYMPHOCYTES 2435 cells/uL 850-3 900 SP ABSOLUTE MONOCYTES 679 cells/uL 200-950 SP ABSOLUTE EOSINOPHILS 272 cells/uL 15-500 SP ABSOLUTE BASOPHILS 49 cells/uL 0-200 SP NEUTROPHILS 64.6 % NRG SP LYMPHOCYTES 25.1 % NRG SP MONOCYTES 7.0 % NRG SP EOSINOPHILS 2.8 % NRG SP BASOPHILS 0.5 % NRG SP BLOOD TPYE/RH FACTOR - 07/26/18 16:02 POS ABO GROUP A NRG SP RH TYPE RH(D) POSITIVE NRG SP ANTIBODY SCREEN - 07/26/18 16:02 POS ANTIBODY SCREEN, RBC W/REFL ID, TITER AND AG NO ANTIBODIES DETECTED SP NRG SP SYPHILIS (RPR W/ REFLEX CONFIRMATION) - 07/26/18 16:02 POS RPR (DX) W/REFL TITER AND CONFIRMATORY TESTING NON-REACTIVE SP NON-REACTIVE SP HEP B SURFACE ANTIGEN - 07/26/18 16:02 POS HEPATITIS B SURFACE ANTIGEN NON-REACTIVE NON-REACTIVE SP RUBELLA IMMUNE STATUS - 07/26/18 16:02 POS RUBELLA ANTIBODY (IGG) 7.76 index NRG SP CULTURE, URINE - 07/26/18 16:02 POS CULTURE, URINE, ROUTINE SEE NOTE NRG SP GC/CHLAMYDIA (SWAB OR URINE)-RAPID - 11/08 16:27 POS CHLAMYDIA TRACHOMATIS RNA, TMA NOT DETECTED NOT DETECTED SP NEISSERIA GONORRHOEAE RNA, TMA NOT DETECTED NOT DETECTED SP COMMENT NRG SP Complete urinalysis with reflex to cultu re - 09/29/18 15:31 POS Urine color determination YELLOW NRG SP Urine clarity determination CLEAR NR G SP Urine pH measurement by test strip 6.0 5-9 SP Specific gravity of urine by test strip > 1.016-1.022 SP Urine protein assay by test strip, semi-quantitative NEGATIVE SP NEGATIVE SP Urine glucose detection by automated test strip NE GATIVE SP Erythrocytes detection in urine sediment by light micr oscopy NEGATIVE SP NEGATIVE SP Urine ketones detection by automated test strip 2+ NEGATIVE SP Urine nitrite detection by test strip NEGATIVE NEGATIVE SP Urine total bilirubin detection by test strip NEGA TIVE SP Urine urobilinogen measurement by automated test strip (mass/volume) SP mg/dL NORMAL SP Urine leukocyte esterase detection by dipstick NEG ATIVE SP Automated urine sediment erythrocyte cou nt by microscopy (number/high power SP NONE NRG SP Automated urine sediment leukocyte count by microscopy (number/high power field) SP NONE NRG SP Bacteria detection in urine sediment by light microsco py NONE SP NRG SP Squamous epithelial cells detection in u rine sediment by light microscopy SP 2-5 NRG SP Crystals detection in urine sediment by light microsco py NONE SP NRG SP Casts detection in urine sediment by light microscopy NONE SP Mucus detection in urine sediment by light microscopy NEGATIVE SP NRG SP Complete urinalysis with reflex to culture NO NRG SP GLUCOSE SONY 1 HOUR - 12/19/18 15:26 POS GLUCOSE, POSTPRANDIAL/ 1 HOUR 85 mg/dL See Note: SP CBC - 12/19/18 15:26 POS WHITE BLOOD CELL COUNT 12.7 Thousand/uL 3.8-10.8 SP RED BLOOD CELL COUNT 3.56 Million/uL 3.8 0-5.10 SP HEMOGLOBIN 10.9 g/dL 11.7-15.5 SP HEMATOCRIT 32.9 % 35.0-45.0 SP MCV 92.4 fL 80.0-100.0 SP MCH 30.6 pg 27.0-33.0 SP MCHC 33.1 g/dL 32.0-36.0 SP RDW 11.3 % 11.0-15.0 SP PLATELET COUNT 250 Thousand/uL 140-400 SP MPV 11.3 fL 7.5-12.5 SP ABSOLUTE NEUTROPHILS 9106 cells/uL 1500- 7800 SP ABSOLUTE LYMPHOCYTES 2324 cells/uL 850-3 900 SP ABSOLUTE MONOCYTES 978 cells/uL 200-950 SP ABSOLUTE EOSINOPHILS 254 cells/uL 15-500 SP ABSOLUTE BASOPHILS 38 cells/uL 0-200 SP NEUTROPHILS 71.7 % NRG SP LYMPHOCYTES 18.3 % NRG SP MONOCYTES 7.7 % NRG SP EOSINOPHILS 2.0 % NRG SP BASOPHILS 0.3 % NRG SP SYPHILIS (RPR W/ REFLEX CONFIRMATION) - 12/19/18 15:26 POS RPR (DX) W/REFL TITER AND CONFIRMATORY TESTING NON-REACTIVE SP NON-REACTIVE SP CULTURE, GROUP B STREP (VAGINAL) - 02/20 15:35 POS STREPTOCOCCUS, GROUP B CULTURE SEE NOTE NRG SP Complete blood count (CBC) with automate d white blood cell (WBC) differential - POS 02:30 Blood leukocytes automated count (number/volume) 14.4 10*3/uL POS 4.3-11.0 SP Blood erythrocytes automated count (number/volume) 3.96 10*6/uL SP 4.35-5.85 SP Venous blood hemoglobin measurement (mass/volume) 11.1 g/dL SP16.0 Blood hematocrit (volume fraction) 34 % 35-52 SP Automated erythrocyte mean corpuscular volume 87 [ foz_us] SP99 Automated erythrocyte mean corpuscular h emoglobin (mass per erythrocyte) SP 28 pg 25-34 SP Automated erythrocyte mean corpuscular h emoglobin concentration measurement SP 32 g/dL 32-36 SP Automated erythrocyte distribution width ratio 13. 2 % 10.0- SP Automated blood platelet count (count/volume) 212 10*3/uL SP400 Automated blood platelet mean volume measurement 12.4 [foz_us] SP 7.4-10.4 SP Automated blood neutrophils/100 leukocytes 80 % 42-75 SP Automated blood lymphocytes/100 leukocytes 13 % 12-44 SP Blood monocytes/100 leukocytes 7 % 0-12 SP Automated blood eosinophils/100 leukocytes 1 % 0-10 SP Automated blood basophils/100 leukocytes 0 % 0-10 SP Blood neutrophils automated count (number/volume) 11.5 10*3 SP7.8 Blood lymphocytes automated count (number/volume) 1.8 10*3 SP4.0 Blood monocytes automated count (number/volume) 1. 0 10*3 SP1.0 Automated eosinophil count 0.1 10*3/uL 0 .0-0.3 SP Automated blood basophil count (count/volume) 0.0 10*3/uL SP0.1 Blood type T Indirect antibody screen [facility] - 03/11/19 02:30 POS WRISTBAND NUMBER [id number] NRG SP ABO+Rh group AP NRG SP Blood group antibody screen NEGATIVE NR G SP Complete blood count (CBC) with automate d white blood cell (WBC) differential - POS 06:45 Blood leukocytes automated count (number/volume) 8.6 10*3/uL POS 4.3-11.0 SP Blood erythrocytes automated count (number/volume) 3.37 10*6/uL SP 4.35-5.85 SP Venous blood hemoglobin measurement (mass/volume) 9.5 g/dL SP16.0 Blood hematocrit (volume fraction) 30 % 35-52 SP Automated erythrocyte mean corpuscular volume 89 [ foz_us] SP99 Automated erythrocyte mean corpuscular h emoglobin (mass per erythrocyte) SP 28 pg 25-34 SP Automated erythrocyte mean corpuscular h emoglobin concentration measurement SP 32 g/dL 32-36 SP Automated erythrocyte distribution width ratio 13. 2 % 10.0- SP Automated blood platelet count (count/volume) 144 10*3/uL SP400 Automated blood platelet mean volume measurement 12.5 [foz_us] SP 7.4-10.4 SP Automated blood neutrophils/100 leukocytes 71 % 42-75 SP Automated blood lymphocytes/100 leukocytes 19 % 12-44 SP Blood monocytes/100 leukocytes 7 % 0-12 SP Automated blood eosinophils/100 leukocytes 3 % 0-10 SP Automated blood basophils/100 leukocytes 0 % 0-10 SP Blood neutrophils automated count (number/volume) 6.1 10*3 SP7.8 Blood lymphocytes automated count (number/volume) 1.7 10*3 SP4.0 Blood monocytes automated count (number/volume) 0. 6 10*3 SP1.0 Automated eosinophil count 0.3 10*3/uL 0 .0-0.3 SP Automated blood basophil count (count/volume) 0.0 10*3/uL SP0.1 Encounters ACCT No. Visit Date/Time Discharge Status POS Pt. Type Provider Facility Loc./Un it [place] Complaint [place] [id number] 02/20/2019 15:30:00 02/20/2019 23:59:5 9 CLS SP Outpatient DIONE LAC, RAM[facility] SP [facility] SP [id number] 02/20/2019 15:30:00 Document SPRegistration SP [id number] 12/19/2018 14:00:00 Document SPRegistration SP [id number] 07/26/2018 14:30:00 Document SPRegistration SP [id number] 03/12/2019 06:00:00 23:59:59 SP CLS [facility] SEALS DO, MIGUELITO E SP INDUCTION SP [id number] 03/11/2019 02:41:00 13:35:00 SP DIS Inpatient SEALS DO, MIGUELITO E [facility] LDRP CONTRACTIONS SP [id number] 03/10/2019 10:56:00 15:05:00 SP DIS Outpatient SEALS DO, MIGUELITO E [facility] WSo CONTRACTIONS SP [id number] 10/13/2018 11:35:00 12:58:00 SP DIS Emergency MICHA VILLATORO DO [facility] ER FS WC ABD PAIN SP [id number] 09/29/2018 14:51:00 16:02:00 SP DIS Emergency PIO MONTES DO Via [facility] ER FS ABD/SUPRAPUBIC PAIN ( 4 MO PREG) SP
== END 2019-03-12 13:35 | disposition home or self-care (01) | DRG 807 ==
LOC: WSo 02:05 → LDRP 02:06 → WSo 02:40 → LDRP 02:41
PROVIDERS: ADMIT Obstetrics & Gynecology; ATTEND Obstetrics & Gynecology
PROC: 10E0XZZ Delivery of Products of Conception, External Approach (ICD-10-PCS; principal; 2019-03-11)
PROC: 0W8NXZZ Division of Female Perineum, External Approach (ICD-10-PCS; 2019-03-11)
DX: O66.0 Obstructed labor due to shoulder dystocia (principal); Z3A.39 39 weeks gestation of pregnancy; Z37.0 Single live birth; Z88.1 Allergy status to other antibiotic agents; Z88.2 Allergy status to sulfonamides; Z88.5 Allergy status to narcotic agent
CPT/HCPCS: 36415; 85025; 86850; 86900; 86901; 99212; 99214

== ENCOUNTER → 2021-02-17 | Outpatient (CLI) | payer MEDICAID ==
[~2021-02-17] MED LIST changes: +ACET-78 PO; +DOCU100C37 PO; +GADOBUTROL 7.5 MMOL/7.5 ML (GADAVIST) VIAL IV ONE; +IBUP-1780 PO; +OXC5T PO
--- NOTE | 2021-02-17 11:07 | Diagnostic Imaging Report ---
Clinical indication: Patient is having right-sided facial pain, vision loss and weakness in arms. Exam: MRI of the brain performed without and with 7 cc of Gadavist IV contrast. Sequences include axial DWI, ADC map, axial gradient echo, axial T2, axial FLAIR, axial T1, axial T1 post IV contrast, coronal T1 fat-sat post IV contrast, and sagittal T1 post IV contrast. Comparison: None. Findings: There is no evidence of acute cerebral infarct, intracranial hemorrhage, or gross mass effect. There is no abnormal IV contrast enhancement. The brain parenchymal volume appears appropriate for patient's age. There is normal soriano-white matter distinction. There is no significant midline shift or herniation. The [place] vascular structures show no gross abnormality as visualized. The pituitary gland, sella, and suprasellar regions are unremarkable as visualized. There is no evidence of hydrocephalus. The basal cisterns are unremarkable. The skull, extracranial soft tissue, and orbits are unremarkable. There is minimal mucosal thickening involving ethmoid sinus and both maxillary sinuses. Temporal bones show no significant abnormality. IMPRESSION: Mild paranasal sinus disease. Otherwise unremarkable MRI of the brain. Dictated by: Dictated on workstation # [id number]
== END ==
LOC: RAD 09:30
PROVIDERS: ATTEND Registered Nurse Emergency
DX: J32.9 Chronic sinusitis, unspecified (principal); H53.121 Transient visual loss, right eye; R53.1 Weakness
CPT/HCPCS: 70553

== ENCOUNTER 2022-02-24 21:07 | Emergency (ER) | payer MEDICAID ==
[~2022-02-24] VITALS: Ht 160 cm; Wt 71.6 kg
[~2022-02-24 21:07] MED LIST changes: -GADOBUTROL 7.5 MMOL/7.5 ML (GADAVIST) VIAL IV ONE
[2022-02-24 22:09] LABS: BILIRUBIN,URINE NEGATIVE (NEGATIVE); CLARITY,URINE SL CLOUDY; COLOR,URINE YELLOW; GLUCOSE, URINE (UA) NEGATIVE (NEGATIVE); KETONES,URINE NEGATIVE (NEGATIVE); LEUKOCYTE ESTERASE ,URINE TRACE (NEGATIVE); NITRITE,URINE NEGATIVE (NEGATIVE); PH,URINE 6.5 (5-9); PROTEIN,URINE NEGATIVE (NEGATIVE)
[2022-02-24] MEDS ORDERED: HOLD METFORMIN - RECEIVED CONTRAST 20 ML VIAL IV SCH (22:15)
[2022-02-24] MEDS ORDERED: NS 100 ML (IVPB) BAG IV ONE (22:15)
[2022-02-24] MEDS ORDERED: oxyCODONE/APAP 5/325MG (PERCOCET 5) TABLET PO ONE (22:15)
[2022-02-24] MEDS ORDERED: CATHETER FLUSH 10 ML SYR IV PRN (22:15)
[2022-02-24] MEDS ORDERED: IOHEXOL 350 MG/ML 100 ML (OMNIPAQUE 350) VIAL IV ONE (22:15)
[2022-02-24 22:17] LABS: BACTERIA,URINE FEW /HPF; CALCIUM OXALATE CRYSTALS,UR RARE /LPF; RBC,URINE 0-2 /HPF
[2022-02-24] MEDS ORDERED: DOXYCYCLINE 100 MG (VIBRAMYCIN) TABLET PO SCH (22:30)
--- NOTE | 2022-02-24 23:08 | Diagnostic Imaging Report ---
PROCEDURE: CT abdomen and pelvis with contrast. TECHNIQUE: Multiple contiguous axial images were obtained through the abdomen and pelvis after administration of intravenous contrast. Auto Exposure Controls were utilized during the CT exam to meet ALARA standards for radiation dose reduction. All CT scans use one or more of the following dose optimizing techniques: automated exposure control, MA and/or KvP adjustment based on patient size and exam type or iterative reconstruction. INDICATION: Right flank pain. COMPARISON: None. FINDINGS: Cholecystectomy. Nonobstructing calyceal tip renal stone in the upper pole of the right kidney measures 0.3 cm. Nonobstructing calyceal tip renal stone in the upper pole of the left kidney measures 0.5 cm. No ureteral stones or hydronephrosis. The lung bases are clear. The liver, pancreas, spleen, adrenals and bladder are negative. The reproductive structures are grossly unremarkable. Normal appendix. No free intraperitoneal air or fluid. No lymphadenopathy. No evidence of bowel obstruction. No acute osseous findings. IMPRESSION: 1. No acute CT findings in the abdomen or pelvis. 2. Small nonobstructing calyceal tip renal stones in the upper pole of each kidney. No ureteral stones or hydronephrosis. Dictated by: Dictated on workstation # [id number]
--- NOTE | 2022-02-24 23:43 | ED Abdominal Pain ---
General Chief Complaint: Abdominal/GI Problems Stated Complaint: ABD/LOWER BACK PAIN,VOMITTING Nursing Triage Note: PATIENT COMPLAINT OF ABDOMINAL PAIN AND BACK PAIN. STATES STARTED YESTERDAY. PATIENTS STATES SEVER PAIN IN ABDOMEN LAST NIGHT, DUE TO PAIN PATIENT VOMITTED. PATIENT STATES URINARY FREQUENCY. Source of Information: Patient Exam Limitations: No Limitations History of Present Illness Date Seen by Provider: Feb 24, 2022 Time Seen by Provider: 22:00 Initial Comments Patient presents with right flank pain radiating to her right lower quadrant. Pain is dull worse with movement and stretching relieved with pressure. No fever chills or sweats. Reports mild urinary frequency and urgency. Patient states she vomited once due to pain. History of kidney stones pain and feels similar. No history of abdominal surgery. No other acute symptoms or complaints Timing/Duration: 4-6 Hours Severity/Quality: Moderate Location: Other Radiation: Other Activities at Onset: Other Modifying Factors: Improves With Other Associated Symptoms: Other Allergies and Home Medications Allergies Coded Allergies: Sulfa (Sulfonamide Antibiotics) (Verified Allergy, Unknown, Rash, 03/10/19) amoxicillin (Verified Allergy, Unknown, Rash, 03/10/19) latex (Verified Allergy, Unknown, Rash, 03/10/19) morphine (Verified Allergy, Unknown, Vomiting, 03/10/19) Patient Home Medication List Home Medication List Reviewed: Yes Acetaminophen (Acetaminophen) 500 Mg Tablet, 1,000 MG PO Q6HR Prescribed by: MIGUELITO PERSON on 03/12/19755 Docusate Sodium (Docusate Sodium) 100 Mg Capsule, 100 MG PO BID Prescribed by: MIGUELITO PERSON on 03/12/19755 Ibuprofen (Ibuprofen) 800 Mg Tablet, 800 MG PO Q8HR Prescribed by: MIGUELITO PERSON on 03/12/19755 Oxycodone Hcl (Oxycodone IR) 5 Mg Tab, 5 MG PO Q6H PRN for PAIN-SEVERE Prescribed by: MIGUELITO PERSON on 03/12/19 075 Paw958/FA/Omega3/Dha/Fish Oil ( Gummies) 1 Each Tab.chew, 2 EACH PO DAILY, (Reported) Entered as Reported by: NAVIN SANTANA on 03/10/19 1140 Review of Systems Review of Systems Constitutional: see HPI EENTM: See HPI Respiratory: See HPI Gastrointestinal: See HPI Genitourinary: See HPI Musculoskeletal: see HPI Past Revlrzt-Yssusn-Mhezan Hx Patient Social History Tobacco Use?: No Use of E-Cig and/or Vaping dev: Yes E-Cig or Vaping type used: Nicotine Use of E-Cig and/or Vaping Charli: Current Someday User Substance use?: No Alcohol Use?: No Immunizations Up To Date Influenza Vaccine Up-to-Date: No; Not Current First/Initial COVID19 Vaccinat: N/A Seasonal Allergies Seasonal Allergies: No Past Medical History Surgeries: Yes (RIGHT FOOT DEBRIDMENT) Gallbladder Respiratory: No Cardiac: No Neurological: No HIV/AIDS: No Genitourinary: No Gastrointestinal: No Musculoskeletal: No Endocrine: No HEENT: No Loss of Vision: Denies Hearing Impairment: Denies Cancer: No Psychosocial: No Integumentary: No Blood Disorders: No Adverse Reaction/Blood Tranf: No Physical Exam Vital Signs Vital Signs - First Documented 02/24/22 21:23 Temp 37.0 Pulse 70 Resp 18 B/P (MAP) 112/69 (83) Pulse Ox 97 O2 Delivery Room Air Capillary Refill : Less Than 3 Seconds Height/Weight/BMI Height: 5'6.00" Weight: 168lbs. oz. 76.656715yb; 27.00 BMI Method:Stated General Appearance: WD/WN, no apparent distress HEENT: PERRL/EOMI, normal ENT inspection Cardiovascular: regular rate, rhythm Gastrointestinal: non tender, soft Back: no CVA tenderness; No CVA tenderness (R), No CVA tenderness (L) Neurologic/Psychiatric: supervising editor news reel II-XII nml as tested, alert, oriented x 3 Focused Exam Sepsis Stage: Ruled Out Progress/Results/Core Measures Results/Orders Lab Results Laboratory Tests Test 02/24/22 21:15 Range/Units Urine Color YELLOW Urine Clarity SL CLOUDY Urine pH 6.5 5-9 Urine Specific [place] 1.025 H 1.016-1.022 Urine Protein NEGATIVE NEGATIVE Urine Glucose (UA) NEGATIVE NEGATIVE Urine Ketones NEGATIVE NEGATIVE Urine Nitrite NEGATIVE NEGATIVE Urine Bilirubin NEGATIVE NEGATIVE Urine Urobilinogen 1.0 < = 1.0 MG/DL Urine Leukocyte Esterase TRACE H NEGATIVE Urine RBC (Auto) NEGATIVE NEGATIVE Urine RBC 0-2 /HPF Urine WBC 2-5 /HPF Urine Squamous Epithelial Cells 5-10 /HPF Urine Crystals PRESENT H /LPF Urine Calcium Oxalate Crystals RARE H /LPF Urine Bacteria FEW H /HPF Urine Casts NONE /LPF Urine Mucus LARGE H /LPF Urine Culture Indicated NO My Orders Orders - MICHA VILLATORO DO Urinalysis (02/24/22 22:02) Oxycodone/Apap 5/325mg Tablet (Percocet (02/24/22 22:15) Urine Bedside (02/24/22 22:02) Iohexol Injection (Omnipaque 350 Mg/Ml 1 (02/24/22 22:15) Received Contrast (Hold Metformin- Contr (02/24/22 22:15) Sodium Chloride Flush (Catheter Flush Sy (02/24/22 22:15) Ns (Ivpb) (Sodium Chloride 0.9% Ivpb Bag (02/24/22 22:15) Doxycycline Hyclate Tablet (Vibramycin T (02/24/22 22:30) Ct Abdomen/Pelvis W (02/24/22 22:02) Medications Given in ED Current Medications Medications Dose Ordered Sig/Mandy Route Start Time Stop Time Status Last Admin Dose Admin Oxycodone/ Acetaminophen 1 tab ONCE ONCE PO 02/24/22 22:15 02/24/22 22:16 DC 02/24/22 22:10 1 TAB Sodium Chloride 10 ml NEEDED PRN IV 02/24/22 22:15 02/24/22 22:31 10 ML Sodium Chloride 100 ml ONCE ONCE IV 02/24/22 22:15 02/24/22 22:17 DC 02/24/22 22:30 100 ML Vital Signs/I&O 02/24/22 21:23 Temp 37.0 Pulse 70 Resp 18 B/P (MAP) 112/69 (83) Pulse Ox 97 O2 Delivery Room Air Blood Pressure Mean: 83 Departure Communication (Admissions) CT abdomen pelvis: No acute finding Right flank pain with positive UA. No findings of kidney stone or appendicitis. Antibiotics given. Patient resting comfortably department discharge. Recommendations for supportive care watchful waiting and PCP follow-up. Return precautions reviewed. Patient verbalizes understanding and agreement discharge instructions prior to departure. Impression Primary Impression: Right flank pain Disposition: 01 HOME, SELF-CARE Condition: Stable Departure-Patient Inst. Decision time for Depature: 23:42 Referrals: CYNTHIA GRAVES MD (PCP/Family) Primary Care Physician Patient Instructions: Flank Pain ED Add. Discharge Instructions: You were evaluated in the emergency department for right flank and right lower quadrant pain. CT was performed does not show evidence of appendicitis or kidney stone. Urine sample was suggestive of a urinary tract infection. Please increase fluids take tramadol for pain and antibiotics as directed. Follow-up w ith your PCP in 3 to 5 days for reevaluation if symptoms persist. Return to the ED if new or worsening symptoms peer All discharge instructions reviewed with patient and/or family. Voiced understanding. Scripts Tramadol HCl (Tramadol HCl) 50 Mg Tablet 50 MG PO Q6H PRN for PAIN for 3 Days, #10 TAB 0 Refills Prov: MICHA VILLATORO DO 02/24/22 Doxycycline Hyclate (Doxycycline Hyclate) 100 Mg Capsule 100 MG PO BID, #10 CAP Prov: MICHA VILLATORO DO 02/24/22 MICHA VILLATORO DO Feb 24, 2022 23:43
[2022-02-24 23:45] VITALS: BP 112/80
[2022-02-24] MEDS ORDERED: TRM50T PO (23:45)
[2022-02-24] MEDS ORDERED: DOXY100C5 PO (23:45)
== END 2022-02-24 23:45 | disposition home or self-care (01) ==
LOC: EDUNIT# 21:07 → ER FS 21:08
DX: R10.9 Unspecified abdominal pain (principal); F17.290 Nicotine dependence, other tobacco product, uncomplicated; Z90.49 Acquired absence of other specified parts of digestive tract; Z91.040 Latex allergy status; Z28.310 Unvaccinated for COVID-19
CPT/HCPCS: 74177; 81000; 84703; Q9967

== ENCOUNTER 2022-03-17 13:38 | Emergency (ER) | payer MEDICAID ==
[~2022-03-17] VITALS: Ht 167 cm; Wt 71.0 kg
[~2022-03-17 13:38] MED LIST changes: +DOXY100C5 PO; +TRM50T PO
--- NOTE | 2022-03-17 13:46 | ED GU-Female ---
General Chief Complaint: - Reproductive Stated Complaint: SUPRAPUBIC PAIN History of Present Illness Date Seen by Provider: Mar 17, 2022 Time Seen by Provider: 13:46 Initial Comments 26-year-old female presents with suprapubic pain, left lower quadrant pain left flank pain. She reports that started around 645 this morning. She reports that she recently had a urinary tract infection the she was treated for back on the . The she was told on the that she had "stones in her kidney" patient had some mild nausea this morning but not at this time. Patient reports that the pain is bilateral lower abdomen but more mainly in the the left side. No reports of fever or chills. She has not taken any for the pain. Allergies and Home Medications Allergies Coded Allergies: Sulfa (Sulfonamide Antibiotics) (Verified Allergy, Unknown, Rash, 03/10/19) amoxicillin (Verified Allergy, Unknown, Rash, 03/10/19) latex (Verified Allergy, Unknown, Rash, 03/10/19) morphine (Verified Allergy, Unknown, Vomiting, 03/10/19) Patient Home Medication List Home Medication List Reviewed: Yes Acetaminophen (Acetaminophen) 500 Mg Tablet, 1,000 MG PO Q6HR Prescribed by: MIGUELITO PERSON on 03/12/19 075 Docusate Sodium (Docusate Sodium) 100 Mg Capsule, 100 MG PO BID Prescribed by: MIGUELITO PERSON on 03/12/19 075 Doxycycline Hyclate (Doxycycline Hyclate) 100 Mg Capsule, 100 MG PO BID Prescribed by: MICHA VILLATORO on 02/24/22 2315 Ibuprofen (Ibuprofen) 800 Mg Tablet, 800 MG PO Q8HR Prescribed by: MIGUELITO PERSON on 03/12/19 0756 Naproxen (Naprosyn) 500 Mg Tablet, 500 MG PO BID Prescribed by: PRETTY AWAD on 03/17/22 1450 Ondansetron (Ondansetron Odt) 4 Mg Tab.rapdis, 4 MG PO Q6H PRN for NAUSEA/VOMITING Prescribed by: PRETTY AWAD on 03/17/22 1450 Oxycodone Hcl (Oxycodone IR) 5 Mg Tab, 5 MG PO Q6H PRN for PAIN-SEVERE Prescribed by: MIGUELITO PERSON on 03/12/19 075 Mcr387/FA/Omega3/Dha/Fish Oil ( Gummies) 1 Each Tab.chew, 2 EACH PO DAILY, (Reported) Entered as Reported by: NAVIN SANTANA on 03/10/19 1140 Tramadol HCl (Tramadol HCl) 50 Mg Tablet, 50 MG PO Q6H PRN for PAIN Prescribed by: MICHA VILLATORO on 02/24/22 8735 Review of Systems Review of Systems Constitutional: No chills, No fever EENTM: no symptoms reported Respiratory: no symptoms reported Cardiovascular: no symptoms reported Gastrointestinal: see HPI, nausea Genitourinary: see HPI, flank pain Musculoskeletal: back pain Skin: no symptoms reported Psychiatric/Neurological: No Symptoms Reported Past Rxakxpg-Yljmah-Jzgcfk Hx Immunizations Up To Date First/Initial COVID19 Vaccinat: N/A Seasonal Allergies Seasonal Allergies: No Past Medical History Surgeries: Yes (RIGHT FOOT DEBRIDMENT) Gallbladder Respiratory: No Cardiac: No Neurological: No HIV/AIDS: No Genitourinary: No Gastrointestinal: No Musculoskeletal: No Endocrine: No HEENT: No Loss of Vision: Denies Hearing Impairment: Denies Cancer: No Psychosocial: No Integumentary: No Blood Disorders: No Adverse Reaction/Blood Tranf: No Physical Exam Vital Signs Vital Signs - First Documented 03/17/22 13:48 Temp 36.6 Pulse 98 Resp 18 B/P (MAP) 151/98 (115) Pulse Ox 100 O2 Delivery Room Air Capillary Refill : Height, Weight, BMI Height: 5'6.00" Weight: 168lbs. oz. 76.324144pw; 27.00 BMI Method:Stated General Appearance: mild distress Neck: full range of motion, supple Cardiovascular: normal peripheral pulses, regular rate, rhythm Respiratory: lungs clear, normal breath sounds Gastrointestinal: soft, tenderness (Minimal suprapubic and left groin) Back: no vertebral tenderness, CVA tenderness (L) (Mild) Extremities: normal range of motion, non-tender, normal inspection Neurologic/Psychiatric: alert, normal mood/affect, oriented x 3 Skin: normal color, warm/dry Progress/Results/Core Measures Suspected Sepsis SIRS Temperature: Pulse: Respiratory Rate: Blood Pressure / Mean: Results/Orders Lab Results Laboratory Tests Test 03/17/22 13:40 Range/Units Urine Color YELLOW Urine Clarity SL CLOUDY Urine pH 6.0 5-9 Urine Specific [place] >=1.030 1.016-1.022 Urine Protein NEGATIVE NEGATIVE Urine Glucose (UA) NEGATIVE NEGATIVE Urine Ketones NEGATIVE NEGATIVE Urine Nitrite NEGATIVE NEGATIVE Urine Bilirubin NEGATIVE NEGATIVE Urine Urobilinogen 0.2 < = 1.0 MG/DL Urine Leukocyte Esterase NEGATIVE NEGATIVE Urine RBC (Auto) 1+ H NEGATIVE Urine RBC 0-2 /HPF Urine WBC 0-2 /HPF Urine Squamous Epithelial Cells 0-2 /HPF Urine Crystals NONE /LPF Urine Bacteria FEW H /HPF Urine Casts NONE /LPF Urine Mucus MODERATE H /LPF Urine Culture Indicated NO My Orders Orders - ALEENA AWADR L DO Ua Culture If Indicated (03/17/22 13:49) Ct Abdomen/Pelvis Wo (03/17/22 13:49) Metoclopramide Injection (Reglan Injecti (03/17/22 13:49) Ketorolac Injection (Toradol Injection) (03/17/22 13:49) Vital Signs/I&O 03/17/22 13:48 Temp 36.6 Pulse 98 Resp 18 B/P (MAP) 151/98 (115) Pulse Ox 100 O2 Delivery Room Air Capillary Refill : Progress Note : Progress Note Patient's urine shows some mild blood mild bacteria but no significant signs for an actual urinary tract infection. Patient denies any vaginal bleeding. Patient CT exam shows no significant findings. Discussed with patient that at this time there is no findings of anything acute. Recommend if her pain does not improve over the next couple days she should follow with her primary care provider for further evaluation. Patient will be prescribed some naproxen and discharged home. Departure Impression Primary Impression: Bilateral groin pain Disposition: HOME, SELF-CARE Condition: Stable Departure-Patient Inst. Referrals: CYNTHIA GRAVES MD (PCP) Primary Care Physician Patient Instructions: Pelvic Pain (DC), Abdominal Pain, Adult ED Add. Discharge Instructions: Follow-up with your primary care provider if symptoms do not improve over the next 4 to 5 days or if they get significantly worse. Return to the ER as All discharge instructions reviewed with patient and/or family. Voiced understanding. Scripts Ondansetron (Ondansetron Odt) 4 Mg Tab.rapdis 4 MG PO Q6H PRN for NAUSEA/VOMITING, #20 TAB 0 Refills Prov: PRETTY AWAD DO 03/17/22 Naproxen (Naprosyn) 500 Mg Tablet 500 MG PO BID, #30 TAB 0 Refills Prov: PRETTY AWAD DO 03/17/22 Work/School Note: Work Release Form Date Seen in the Emergency Department: Mar 17, 2022 Return to Work: Mar 18, 2022 PRETTY AWAD DO Mar 17, 2022 13:46
[2022-03-17 13:48] VITALS: BP 151/98
[2022-03-17] MEDS ORDERED: METOCLOPRAMIDE INJ 10 MG/2 ML (REGLAN) IM STA (13:49)
[2022-03-17] MEDS ORDERED: KETOROLAC 30 MG/ML VIAL IM STA (13:49)
[2022-03-17 13:59] LABS: BILIRUBIN,URINE NEGATIVE (NEGATIVE); CLARITY,URINE SL CLOUDY; COLOR,URINE YELLOW; GLUCOSE, URINE (UA) NEGATIVE (NEGATIVE); KETONES,URINE NEGATIVE (NEGATIVE); LEUKOCYTE ESTERASE ,URINE NEGATIVE (NEGATIVE); NITRITE,URINE NEGATIVE (NEGATIVE); PROTEIN,URINE NEGATIVE (NEGATIVE)
[2022-03-17 14:10] LABS: BACTERIA,URINE FEW /HPF; RBC,URINE 0-2 /HPF; SQUAMOUS EPITHELIAL CELL,UR 0-2 /HPF; WBC,URINE 0-2 /HPF
--- NOTE | 2022-03-17 14:38 | Diagnostic Imaging Report ---
PROCEDURE: CT abdomen and pelvis without contrast. TECHNIQUE: Multiple contiguous axial images were obtained through the abdomen and pelvis without the use of intravenous contrast. Auto Exposure Controls were utilized during the CT exam to meet ALARA standards for radiation dose reduction. INDICATION: Left-sided abdominal pain. History of UTI and renal calculus. COMPARISON: 02/24/2022. FINDINGS: Included portions of the lung bases are clear. CT ABDOMEN: Punctate bilateral nonobstructive renal calculi are identified. No ureteral calculi are seen on either side. Additionally, there is no hydronephrosis or other evidence of obstruction. Kidneys have an otherwise unremarkable noncontrast CT appearance. The adrenal glands, spleen, pancreas, and liver have a normal noncontrast CT appearance. Small bowel loops are nondistended. Normal appendix is identified. There is no loculated fluid collection, free fluid, or free air within the abdomen. No abnormal mesenteric or retroperitoneal adenopathy is seen. Osseous structures show no acute abnormalities. CT PELVIS: Urinary bladder is unopacified. No calculi are seen within the urinary bladder. Small amount of free fluid is present. There is no loculated fluid collection or free air. No abnormal lymph nodes are seen. Osseous structures show no acute abnormalities. IMPRESSION: 1. Punctate bilateral nonobstructive renal calculi. 2. No ureteral calculi, hydroureteronephrosis, or other evidence of obstruction. 3. Small amount of free fluid within the pelvis; possibly physiologic. Dictated by: Dictated on workstation # [id number]
[2022-03-17] MEDS ORDERED: NAPR-1071 PO (14:50)
[2022-03-17] MEDS ORDERED: ONDA4TAB11 PO (14:50)
== END 2022-03-17 15:05 | disposition home or self-care (01) ==
LOC: EDUNIT# 13:38 → ER FS 13:39
DX: R10.32 Left lower quadrant pain (principal); R10.31 Right lower quadrant pain; R11.0 Nausea; Z90.49 Acquired absence of other specified parts of digestive tract; Z91.040 Latex allergy status; Z28.310 Unvaccinated for COVID-19
CPT/HCPCS: 74176; 81000; 99285